=== PATIENT | male | born 2000 | race American Indian/Alaskan Native ===

== ENCOUNTER 2019-10-02 12:10 | Emergency (ER) | payer SELFPAY ==
--- NOTE | 2019-10-02 12:54 | Emergency Department Report ---
Chief Complaint: Sore Throat Stated Complaint: SORE THROAT Time Seen by Provider: 10/02/19 12:41 - HPI History of Present Illness: 19 y o male presents with cc of sore throat x 2 days denies fever, travel outside country or sick contact states hes just worried - ROS Review of Systems: as noted in HPI - Exam Physical Exam: GENERAL: Alert and oriented x3, no apparentdistress, Normal Gait, atraumatic. HEAD: Head is normocephalic and a-traumatic. MOUTH:Mouth is well hydrated and without lesions. Tonsils nonerythematous or swollen, Uvula midline, Tongue not elevated. Mucous membranes are moist. Posterior pharynx clear, no exudate or lesions. Patent airways. NECK: Supple. Non edematous, No carotid bruits. No lymphadenopathy or thyromegaly. No C-spine tenderness MSE screening note: Focused history and physical exam performed. Due to findings the following was ordered: ED Medical Decision Making - Medical Decision Making 19 y o female who presents with sore throat VSS Discussed folow up with pcp, referrals given pt in no acute distress Nor mal exam ED Disposition for MSE Clinical Impression: Sore throat Disposition: Z-07 MED SCREENING EXAM-LEFT Is pt being admited?: No Does the pt Need Aspirin: No Condition: Stable Instructions: Pharyngitis (ED) Additional Instructions: Make sure to follow up with the primary care physician as discussed. If you have any worsening symptoms or develop new symptoms please return to ED immediately. Referrals: PRIMARY CARE, [Primary Care Provider] - 3-5 Days [facility] [Outside] - 3-5 Days [facility] [Outside] - 3-5 Days [facility] [Outside] - 3-5 Days Forms: Accompanied Note, Work/School Release Form(ED) Time of Disposition: 12:53
[2019-10-02 12:59] VITALS: BP 136/77
== END 2019-10-02 12:45 | disposition left against medical advice (07) ==
LOC: ED 12:10
DX: J02.9 Acute pharyngitis, unspecified (principal)
CPT/HCPCS: 99281